=== PATIENT | female | born 1995 | race Asian ===

== ENCOUNTER 2017-05-23 20:25 | Emergency (ER) | payer SELFPAY ==
[~2017-05-23] VITALS: Ht 154.9 cm; Wt 77.0 kg
[2017-05-23] MEDS ORDERED: CefTRIAXone SODIUM 1 GM/VIAL IM ONE (21:15)
[2017-05-23] MEDS ORDERED: LIDOCAINE HCL/PF 1% 2 ML VIAL IM ONE (21:15)
[2017-05-23 22:00] VITALS: BP 122/82
== END 2017-05-23 22:15 | disposition home or self-care (01) ==
LOC: EMS 20:29
DX: L23.9 Allergic contact dermatitis, unspecified cause (principal); L03.114 Cellulitis of left upper limb; J45.909 Unspecified asthma, uncomplicated
CPT/HCPCS: 96372; 99283; J0696; J3490

== ENCOUNTER 2017-11-30 11:09 | Emergency (ER) | payer MEDICAID ==
[~2017-11-30] VITALS: Ht 154.9 cm; Wt 77.0 kg
[2017-11-30 11:43] VITALS: BP 125/84
== END 2017-11-30 12:25 | disposition home or self-care (01) ==
LOC: EMS 11:10
DX: R09.89 Other specified symptoms and signs involving the circulatory and respiratory systems (principal); R03.0 Elevated blood-pressure reading, without diagnosis of hypertension; R09.81 Nasal congestion; J45.909 Unspecified asthma, uncomplicated
CPT/HCPCS: 99281